=== PATIENT | male | born 1960 | race Caucasian/White ===

== ENCOUNTER 2019-05-04 14:07 | Emergency (ER) | payer BC ==
[~2019-05-04] VITALS: Ht 165.1 cm; Wt 104.5 kg
[~2019-05-04 14:07] MED LIST: ACETIC ACID2 % AU; AMOXICILLIN875 MG OR; AMOXICILLIN875 MG PO; CHERATUSSIN PO; MEDDOSEPAK PO; PROAIR HFA IN; ROBITUSSIN AC10 ML PO; ZPAK PO
[2019-05-04] MEDS ORDERED: ADULT ASPIRIN R81 MG PO (14:27)
[2019-05-04 14:38] LABS: HEMATOCRIT 49.9 % (39.0-50.0); HEMOGLOBIN 16.6 g/dl (14.0-18.0); IMMATURE GRANULOCYTES 0.5 % (0.0-5.0); MEAN CELL VOLUME 90.4 fL CALC (80.0-100.0); MEAN CORPUSCULAR HGB 30.1 pG CALC (26.0-32.0); MEAN CORPUSCULAR HGB CONC 33.3 g/L CALC (32.0-36.0); NEUT# 7.27 thou/uL (1.82-7.42); RED BLOOD COUNT 5.52 mill/uL (4.70-6.10); RED CELL DISTRI WIDTH 12.8 % (11.5-15.5)
[2019-05-04 14:55] LABS: ANION GAP 16 (6-22 (CALC)); BUN 20 mg/dL (9-20); BUN/CREATININE RATIO 18 (12-20 (CALC)); CARBON DIOXIDE 24 mmol/l (22-30); CHLORIDE 106 mmol/l (95-108); CREATININE 1.1 mg/dL (0.7-1.3); GFR > 60 ML/MIN (>=60 (CALC)); GFR FOR AFR.AMER. > 60 ML/MIN (>=60 (CALC)); POTASSIUM 4.2 mmol/l (3.5-5.1); SODIUM 141 mmol/l (137-146)
[2019-05-04] MEDS ORDERED: CARVEDILOL6.25 MG PO (15:19)
[2019-05-04 15:36] VITALS: BP 107/74
== END 2019-05-04 15:45 | disposition home or self-care (01) | DRG 310 ==
LOC: ED 14:07
PROVIDERS: Family Medicine
DX: R00.0 Tachycardia, unspecified (principal); R06.02 Shortness of breath

== ENCOUNTER 2021-12-08 09:48 | Observation (INO) | payer BC ==
[~2021-12-08] VITALS: Ht 165.1 cm; Wt 100.0 kg
[2021-12-08] VITALS (24 sets, daily range): BP systolic 115–139; BP diastolic 74–102
[~2021-12-08 09:48] MED LIST changes: +ADULT ASPIRIN R81 MG PO; +CARVEDILOL6.25 MG PO
[2021-12-08 10:25] LABS: HEMATOCRIT 49.7 % (39.0-50.0); HEMOGLOBIN 15.9 g/dl (14.0-18.0); IMMATURE GRANULOCYTES 0.2 % (0.0-5.0); MEAN CELL VOLUME 91.5 fL CALC (80.0-100.0); MEAN CORPUSCULAR HGB 29.3 pG CALC (26.0-32.0); NEUT# 11.34 thou/uL (1.82-7.42); RED BLOOD COUNT 5.43 mill/uL (4.70-6.10); RED CELL DISTRI WIDTH 15.1 % (11.5-15.5)
[2021-12-08] MEDS ORDERED: PROAIR HFA108 MCG/AC IN (10:34)
[2021-12-08] MEDS ORDERED: BREZTRI AEROSPH1 AER (10:34)
[2021-12-08] MEDS ORDERED: ASPIRIN81 MG PO (10:34)
[2021-12-08] MEDS ORDERED: FUROSEMIDE20 MG PO (10:35)
[2021-12-08] MEDS ORDERED: ENTRESTO 49-511 TAB PO (10:35)
[2021-12-08 10:36] LABS: ALBUMIN 4.2 g/dL (3.2-5.0); ALKALINE PHOSPHATASE 85 u/l (38-126); ANION GAP 14 (6-22 (CALC)); BILIRUBIN, TOTAL 1.7 mg/dL (0.0-1.4); BUN 27 mg/dL (9-20); BUN/CREATININE RATIO 21 (12-20 (CALC)); CARBON DIOXIDE 25 mmol/l (22-30); CHLORIDE 103 mmol/l (95-108); CREATININE 1.3 mg/dL (0.7-1.3); GFR FOR AFR.AMER. > 60 ML/MIN (>=60 (CALC)); GFR OTHER RACES 57 ML/MIN (>=60 (CALC)); POTASSIUM 4.4 mmol/l (3.5-5.1); SGOT/AST 24 u/l (17-59); SODIUM 137 mmol/l (137-146); TOTAL PROTEIN 7.8 g/dL (6.3-8.2)
[2021-12-08] MEDS ORDERED: LOPRESSOR25 M1 PO (10:36)
[2021-12-08] MEDS ORDERED: OMEPRAZOLE DR40 MG PO (10:36)
[2021-12-08] MEDS ORDERED: SPIRONOLACT25 MG PO (10:39)
[2021-12-08 12:58] LABS: URINE BILIRUBIN - DIPSTICK NEGATIVE (NEGATIVE); URINE BLOOD DIPSTICK TRACE-INTACT (NEGATIVE); URINE GLUCOSE - DIPSTICK NEGATIVE (NEGATIVE); URINE KETONE 15 mg/dL (NEGATIVE); URINE LEUK ESTERASE NEGATIVE (NEGATIVE); URINE PH 5.5 (4.5-8.0); URINE SPECIFIC GRAVITY 1.025; URINE UROBILINOGEN - DIPSTICK 0.2 E.U./dL (0.2)
[2021-12-08 13:00] LABS: URINE COLOR DK. YELLOW; URINE NITRITE - DIPSTICK NEGATIVE (Negative); URINE PROTEIN - DIPSTICK Trace mg/dL (NEG-TRACE)
[2021-12-08] MEDS ORDERED: WIXELA INHUB 251 AER IN (13:11)
[2021-12-09 00:07] VITALS: BP 122/89
[2021-12-09 00:15] VITALS: BP 122/89
[2021-12-09 04:27] VITALS: BP 100/74
[2021-12-09 04:55] VITALS: BP 100/74
[2021-12-09 06:20] VITALS: BP 111/74
[2021-12-09 06:23] LABS: HEMATOCRIT 48.5 % (39.0-50.0); HEMOGLOBIN 15.5 g/dl (14.0-18.0); MEAN CELL VOLUME 92.4 fL CALC (80.0-100.0); MEAN CORPUSCULAR HGB 29.5 pG CALC (26.0-32.0); RED BLOOD COUNT 5.25 mill/uL (4.70-6.10); RED CELL DISTRI WIDTH 15.3 % (11.5-15.5)
[2021-12-09 06:44] LABS: ANION GAP 11 (6-22 (CALC)); BUN 23 mg/dL (9-20); BUN/CREATININE RATIO 23 (12-20 (CALC)); CARBON DIOXIDE 23 mmol/l (22-30); CHLORIDE 102 mmol/l (95-108); GFR FOR AFR.AMER. > 60 ML/MIN (>=60 (CALC)); GFR OTHER RACES > 60 ML/MIN (>=60 (CALC)); MAGNESIUM 1.8 mg/dL (1.6-2.3); POTASSIUM 4.1 mmol/l (3.5-5.1); SODIUM 132 mmol/l (137-146)
[2021-12-09 10:19] VITALS: BP 127/93
== END 2021-12-09 15:11 | disposition home or self-care (01) | DRG 291 ==
LOC: ED 09:48 → ED-I 12:30 → ED 13:07 → MS2 13:08
PROVIDERS: Family Medicine; ADMIT Hospitalist; ATTEND Hospitalist
DX: I11.0 Hypertensive heart disease with heart failure (principal); I50.23 Acute on chronic systolic (congestive) heart failure; I42.9 Cardiomyopathy, unspecified; K21.9 Gastro-esophageal reflux disease without esophagitis; Z20.822 Contact with and (suspected) exposure to COVID-19
CPT/HCPCS: G0378

== ENCOUNTER 2024-07-08 20:38 | Observation (INO) | payer BC ==
[~2024-07-08] VITALS: Ht 165.1 cm; Wt 104.2 kg
[~2024-07-08 20:38] MED LIST changes: +ASPIRIN81 MG PO; +BREZTRI AEROSPH1 AER; +ENTRESTO 49-511 TAB PO; +FUROSEMIDE20 MG PO; +LOPRESSOR25 M1 PO; +OMEPRAZOLE DR40 MG PO; +PROAIR HFA108 MCG/AC IN; +SPIRONOLACT25 MG PO; +WIXELA INHUB 251 AER IN
[2024-07-08 22:27] LABS: BASO% 0.6 % (0-3); EOS% 1.1 % (0-8); HEMATOCRIT 53.1 % (39.0-50.0); HEMOGLOBIN 17.1 g/dl (14.0-18.0); IMMATURE GRANULOCYTES 0.3 % (0.0-5.0); LYMPH% 18.8 % (15-41); MEAN CELL VOLUME 98.9 fL CALC (80.0-100.0); MEAN CORPUSCULAR HGB 31.8 pG CALC (26.0-32.0); MEAN CORPUSCULAR HGB CONC 32.2 g/dL CAL (32.0-36.0); MONO% 6.7 % (2-13); NEUT# 6.85 thou/uL (1.82-7.42); NEUT% 72.5 % (42-76); RED BLOOD COUNT 5.37 mill/uL (4.70-6.10); RED CELL DISTRI WIDTH 13.1 % (11.5-15.5)
[2024-07-08 22:32] VITALS: BP 87/63
[2024-07-08] MEDS ORDERED: IPRATROPIUM-Albuterol 0.5MG-2.5MG/3 ML NEB ONE (22:40)
[2024-07-08] MEDS ORDERED: FUROSEMIDE 40 MG/4 ML SDV IV ONE (22:40)
[2024-07-08] MEDS ORDERED: MORPHINE SULFATE 4 MG/ML VIAL IV ONE (22:40)
[2024-07-08] MEDS ORDERED: ONDANSETRON HCl 4 MG/2 ML SDV IV ONE (22:40)
[2024-07-08 22:50] LABS: ALBUMIN 4.5 g/dL (3.2-5.0); BILIRUBIN, TOTAL 1.5 mg/dL (0.2-1.3); CREATININE 1.8 mg/dL (0.7-1.3); TOTAL PROTEIN 7.9 g/dL (6.3-8.2)
[2024-07-08 22:52] LABS: POTASSIUM 5.3 mmol/l (3.5-5.1)
[2024-07-08 23:06] VITALS: BP 99/71
[2024-07-08 23:30] VITALS: BP 107/77
[2024-07-09] VITALS (20 sets, daily range): BP systolic 75–116; BP diastolic 41–76
[2024-07-09] MEDS ORDERED: ASPIRIN 81 MG/TAB PO SCH (00:44)
[2024-07-09] MEDS ORDERED: IBUPROFEN 800 MG/TAB PO PRN (00:45)
[2024-07-09] MEDS ORDERED: FAMOTIDINE 10MG/ML 2ML SDV IV PRN (00:45)
[2024-07-09] MEDS ORDERED: ALUM & MAG HYDROX-SIMETHICONE 30 ML PO PRN (00:45)
[2024-07-09] MEDS ORDERED: Polyethylene Glycol 3350 17 GM/PKT PO PRN (00:45)
[2024-07-09] MEDS ORDERED: ONDANSETRON HCl 4 MG/2 ML SDV IV PRN (00:45)
[2024-07-09] MEDS ORDERED: ONDANSETRON 4 MG/TAB ODT PO PRN (00:45)
[2024-07-09] MEDS ORDERED: SODIUM CHLORIDE 0.9% 1,000 ML IV PRN (07:50)
[2024-07-09] MEDS ORDERED: ELIQUIS5 MG PO (10:08)
[2024-07-09] MEDS ORDERED: VERQUVO2.5 MG PO (10:10)
[2024-07-09] MEDS ORDERED: JARDIANCE10 MG PO (10:11)
[2024-07-09] MEDS ORDERED: CRESTOR10 MG PO (10:11)
== END 2024-07-09 12:16 | disposition home or self-care (01) | DRG 292 ==
LOC: ED 20:38 → ED-I 07-09 00:20 → ED 07-09 00:43 → MS2 07-09 00:44
PROVIDERS: Internal Medicine; ADMIT Internal Medicine; ATTEND Internal Medicine
DX: I11.0 Hypertensive heart disease with heart failure (principal); N17.9 Acute kidney failure, unspecified; I50.9 Heart failure, unspecified; E86.0 Dehydration; E87.5 Hyperkalemia; K21.9 Gastro-esophageal reflux disease without esophagitis; I42.8 Other cardiomyopathies; U09.9 Post COVID-19 condition, unspecified
CPT/HCPCS: G0378; J1940; J2405